=== PATIENT | male | born 1990 | race Caucasian/White ===

== ENCOUNTER 2016-08-17 09:50 | Inpatient (IN) | payer BC, OTHER ==
[~2016-08-17] VITALS: Ht 182.9 cm; Wt 61.2 kg
--- NOTE | 2016-08-17 09:58 | NUR ---
INTAKE ASSESSMENT Received patient AOx4. Patient presents in stable condition and ambulatory. Viral signs stable at BP 121/72, P 93, Temp 98.2, RR 16, O2 99%. Patient reports no known allergies and no seizure history. Patient did not bring any medications with him. Explained unit protocols and policies and patient verbalized understanding. Will admit patient when he arrives to third floor.
[2016-08-17] MEDS ORDERED: QUET200T PO (10:03)
[2016-08-17] MEDS ORDERED: ESCI20TA PO (10:03)
[2016-08-17 10:45] VITALS: BP 121/72
--- NOTE | 2016-08-17 11:00 | NUR ---
ADMISSION NOTE VS BP 121/72 HR 93 O2 99% RR 16 TEMP 98.2 PAIN 10/17 HEIGHT 6'0 WEIGHT 135 LBS ALLERGIES NKA Patient is a 25 year old male admitted to [facility] on 08/17/16 at 1045. Patient is under the care of Dr. Connell for Heroin, Meth, Coke, Crack dependence. Patient denies S/I and H/I at this time. Patient denies being hospitalized in the last 30 days. Patient denies chest pain or SOB. Patient reports using Seroquel 200 mg and Lexapro 20 mg daily. Upon assessment, patient has pick montalvo on upper back and right arm. COWS 12 upon assessment. NKA. AOX4. Patient is full code and regular diet. VS WNL. Patient denies seizure history. Patient denies having a PCP. Breathing is even and unlabored. Patient ambulates with steady gait. Patient states his bowel habits are not regular and he goes every few days if that. Patient reports treatment history at 3 other recovery centers last year with a sobriety period of 6 months. Patient reports living with his fiance. Hx Anxiety, depression, Hep C, and bipolar disorder. Patient smokes cigarettes and is requesting smoking cessation. Dr. Connell has seen patient and placed client under observation. All needs have been met, all safety measures in place. Bed in lowest position and locked with call dent within reach. Will continue to monitor. Substance Abuse: Heroin 1/2 gram daily for 4-5 years, last used 1/4 gram 08-16-16 Meth occasionally, last used unknown amount 3-4 days ago Coke occasionally, last used unknown amount 3-4 days ago Crack occasionally, last used unknown amount 3-4 days ago.
[2016-08-17] MEDS ORDERED: HYDROXYZINE PAMOATE 25 MG CAPSULE PO PRN (11:45)
[2016-08-17] MEDS ORDERED: LOPERAMIDE HCL 2 MG CAPSULE PO PRN ×2 (11:45)
[2016-08-17] MEDS ORDERED: CLONIDINE HCL 0.1 MG TABLET PO PRN (11:45)
[2016-08-17] MEDS ORDERED: IBUPROFEN 600 MG TABLET PO PRN (11:45)
[2016-08-17] MEDS ORDERED: MIRALAX 17 GM POWD.PACK PO PRN (11:45)
[2016-08-17] MEDS ORDERED: diphenhydrAMINE 50 MG CAPSULE PO PRN (11:45)
[2016-08-17] MEDS ORDERED: MAG HYDROX/AL HYDROX/SIMETH 30 ML LIQUID UDC PO PRN (11:45)
[2016-08-17] MEDS ORDERED: MAGNESIUM HYDROXIDE 30 ML LIQUID UDC PO PRN (11:45)
[2016-08-17] MEDS ORDERED: ACETAMINOPHEN 325 MG TABLET PO PRN (11:45)
[2016-08-17] MEDS ORDERED: BUPRENORPHINE HCL 2 MG TAB.SUBL SL PRN (11:45)
[2016-08-17] MEDS ORDERED: ONDANSETRON 4 MG/2 ML VIAL IM PRN (11:45)
[2016-08-17] MEDS ORDERED: DICYCLOMINE HCL 20 MG TABLET PO PRN (11:45)
[2016-08-17] MEDS ORDERED: ONDANSETRON ODT 4 MG TAB.RAPDIS SL PRN (11:45)
[2016-08-17 11:46] LABS: *AMPHETAMINE, URINE NEGATIVE (NEGATIVE); *BARBITURATE, URINE NEGATIVE (NEGATIVE); *CANNABINOID, URINE NEGATIVE (NEGATIVE); *COCCAINE, URINE NEGATIVE (NEGATIVE); *OPIATE, URINE POSITIVE (NEGATIVE); *PHENCYCLIDINE SCREEN,URINE NEGATIVE (NEGATIVE)
[2016-08-17 12:00] VITALS: BP 106/61
[2016-08-17] MEDS: BUPRENORPHINE HCL 2 MG TAB.SUBL SL SCH ×3 (12:31→21:28)
[2016-08-17 13:10] LABS: ETHANOL < 3 MG/DL (0-0)
[2016-08-17 13:13] LABS: BASOPHILS % (AUTO) 0.5 % (0.0-2.0); EOSINOPHILS # (AUTO) 0.2 K/uL (0.0-0.7); EOSINOPHILS % (AUTO) 3.6 % (0.0-7.0); HEMATOCRIT 41.5 % (40-50); HEMOGLOBIN 14.2 G/DL (14.0-18.0); LYMPHOCYTES # (AUTO) 1.9 K/UL (0.8-4.8); LYMPHOCYTES % (AUTO) 32.3 % (20.5-51.5); MEAN CORPUSCULAR HEMOGLOBIN 29.6 UUG (27.0-31.0); MEAN CORPUSCULAR HGB CONC 34 g/dL (32.0-37.0); MEAN CORPUSCULAR VOLUME 86.4 FL (82.0-92.0); MONOCYTES # (AUTO) 0.3 K/UL (0.1-1.30); MONOCYTES % (AUTO) 5.5 % (0.0-11.0); NEUTROPHILS # (AUTO) 3.6 K/UL (1.8-8.9); NEUTROPHILS % (AUTO) 58.1 % (38.5-71.5); PLATELET COUNT (AUTO) 246 K/UL (150-450)
[2016-08-17 13:14] LABS: ALANINE AMINOTRANSFERASE 253 U/L (16-63); ALKALINE PHOSPHATASE 101 U/L (50-136); ASPARTATE AMINOTRANSFERASE 92 U/L (15-37); BILIRUBIN,TOTAL 0.3 mg/dL (0.2-1.0); CARBON DIOXIDE 29 mmol/L (21-32); CHLORIDE 105 mmol/L (98-107); CREATININE 0.9 mg/dL (0.6-1.3); GLUCOSE 131 mg/dL (74-106); POTASSIUM 3.8 mmol/L (3.5-5.1); TOTAL PROTEIN, SERUM 7.7 g/dL (6.4-8.2); UREA NITROGEN, BLOOD 3 mg/dL (7-18)
[2016-08-17 16:00] VITALS: BP 123/80
--- NOTE | 2016-08-17 18:30 | NUR ---
END OF SHIFT NOTE Admitted patient this shift. Patient admitted for Heroin, Meth, Cocaine, & Crack dependence. Patient reports no seizure history. NKA. Patient started on 5 day Subutex taper and tolerating well. Patient given 2 doses this shift. Last COWS 9. Patient sleeping most of time after admission. He presents with scabs on upper back, pictures taken and placed in chart. All needs met. Safety measures in place. Patient sleeping in bed with rr even and unlabored and call dent within reach. Will endorse to night nurse.
--- NOTE | 2016-08-17 19:00 | NUR ---
Start of Shift Patient Received. Patient is in activities room participating in group meeting. Patient is a 25 year old male, admitted today 08/17/16 for Opiate Dependence, under the care of Dr. Connell. Patient was started on a Subutex taper and has received two doses. Patient verbalizes No known allergies, wishes to be full code, following a regular diet, and placed on fall precautions. Past medical history verbalizes as Bipolar, Anxiety, Depression, and Hep C+. Patient is also noted with scabs on upper back. Last noted COWS as 9. All needs attended to promptly. Will continue plan of care as ordered.
[2016-08-17 20:40] VITALS: BP 114/82
[2016-08-17] MEDS: QUETIAPINE FUMARATE 200 MG TABLET PO SCH (21:28)
[2016-08-17] MEDS: METHOCARBAMOL 750 MG TABLET PO PRN (21:28)
--- NOTE | 2016-08-17 21:30 | NUR ---
PRN Medication Administration Patient verbalizing increase muscle spasms and body aches. All non pharmacological interventions not effective. PRN Robaxin administered with routine medications. All needs attended to promptly. Will continue to monitor.
--- NOTE | 2016-08-17 22:40 | NUR ---
PRN Medication Reassessment Patient noted returning from smoking patio. Patient is able to verbalize "the subutex and the Robaxin really helped. I feel like I can relax to try and go to sleep." PRN Robaxin noted to be effective. Will continue to monitor.
[2016-08-18 00:16] VITALS: BP 101/57
[2016-08-18 04:05] VITALS: BP 105/67
--- NOTE | 2016-08-18 06:57 | NUR ---
End of Shift Patient is in bed sleeping. Breathing even and non labored. No signs of pain or discomfort noted. Patient is a 25 year old male, admitted 08/17/16 for Opiate Dependence, under the care of Dr. Connell. Patient was started on a Subutex taper and is tolerating well. Patient verbalizes No known allergies, full code, regular diet, and placed on fall precautions. Past medical history verbalizes as Bipolar, Anxiety, Depression, and Hep C+. Patient is also noted with scabs on upper back. Patient was given PRN Robaxin for increased muscle spasms with medication noted to be effective. All needs attended to promptly. Will continue plan of care as ordered.
--- NOTE | 2016-08-18 07:23 | NUR ---
START OF SHIFT NOTE Received report from night nurse, 25 year old male admitted for Heroin, Meth, Cocaine, & Crack dependence. NKA, full code, Regular diet. Patient cont on 5 day Subutex taper. Pt reported PMH of Bipolar, Anxiety, Depression, and Hep C+. Patient has scabs on upper back. Per endorsement pt received PRN Robaxin for muscle spasms effective pr night nurse. Currently pt sleeping in his room in stable condition, responsive to verbal and tactile stimuli. No s/s of distress noted. All safety measures in place, call light within reach. Will cont to monitor.
[2016-08-18 08:00] VITALS: BP 102/62
[2016-08-18] MEDS ORDERED: TUBERCULIN,PURIF.PROT.DERIV. 5 TU/0.1 ML TEST ID ONE (09:00)
[2016-08-18] MEDS: ESCITALOPRAM OXALATE 10 MG TABLET NG SCH (09:05)
[2016-08-18] MEDS: MULTIVITAMINS,THERAPEUTIC TABLET PO SCH (09:05)
[2016-08-18] MEDS: BUPRENORPHINE HCL 2 MG TAB.SUBL SL SCH ×3 (09:05→20:47)
[2016-08-18 12:00] VITALS: BP 99/55
[2016-08-18 16:00] VITALS: BP 101/62
--- NOTE | 2016-08-18 19:00 | NUR ---
Start of Shift Patient Received. Patient is in activities room participating in group meeting. Patient is a 25 year old male, admitted 08/17/16 for Opiate Dependence, under the care of Dr. Connell. Patient was started on a Subutex taper and has received two doses. Patient verbalizes No known allergies, wishes to be full code, following a regular diet, and placed on fall precautions. Past medical history verbalizes as Bipolar, Anxiety, Depression, and Hep C+. Patient is also noted with scabs on upper back. Per endorsement, patient was compliant with plan of care with last noted COWS as 7. All needs attended to promptly. Will continue plan of care as ordered.
--- NOTE | 2016-08-18 19:11 | NUR ---
END OF SHIFT NOTE Gave report to night nurse, 25 year old male admitted for Heroin, Meth, Cocaine, & Crack dependence. NKA, full code, Regular diet. Patient cont on 5 day Subutex taper. Pt reported PMH of Bipolar, Anxiety, Depression, and Hep C+. Patient has scabs on upper back. last COWS-7. Pt is compliant with treatment plan. Vital signs stable. Pt stayed in his room most of the time, Patient encouraged to attend group therapies/sessions to learn new coping skills to prevent relapse. patient denies any SI/HI. Safety measures in place. call light kept with in reach. patient endorsed to senior software analyst nurse, all pertinent information discussed. Pt endorsed to Night nurse in stable condition.
[2016-08-18 20:41] VITALS: BP 122/73
[2016-08-18] MEDS: QUETIAPINE FUMARATE 200 MG TABLET PO SCH (20:47)
[2016-08-18] MEDS: GABAPENTIN 300 MG CAPSULE PO SCH (20:47)
[2016-08-19 00:15] VITALS: BP 93/55
[2016-08-19 04:34] VITALS: BP 98/65
--- NOTE | 2016-08-19 07:05 | NUR ---
End of Shift Patient is in bed sleeping. Breathing even and non labored. No signs of pain or discomfort noted. Patient is a 25 year old male, admitted 08/17/16 for Opiate Dependence, under the care of Dr. Connell. Patient was started on a Subutex taper and is tolerating well. Patient verbalizes No known allergies, full code, regular diet, and placed on fall precautions. Past medical history verbalizes as Bipolar, Anxiety, Depression, and Hep C+. Patient is also noted with scabs on upper back. NO PRN Medications administered. All needs attended to promptly. Will continue plan of care as ordered.
--- NOTE | 2016-08-19 07:33 | NUR ---
START OF SHIFT NOTE Received report from night nurse, 25 year old male admitted for Heroin, Meth, Cocaine, & Crack dependence. NKA, full code, Regular diet. Patient cont on 5 day Subutex taper. Pt reported PMH of Bipolar, Anxiety, Depression, and Hep C+. Patient has scabs on upper back. Per endorsement pt received did not receive any PRN medications, Last COWS-1, Slept for 9 hours. Currently pt sleeping in his room in stable condition, responsive to verbal and tactile stimuli. No s/s of distress noted. All safety measures in place, call light within reach. Will cont to monitor.
[2016-08-19 08:00] VITALS: BP 108/68
[2016-08-19] MEDS: MULTIVITAMINS,THERAPEUTIC TABLET PO SCH (08:57)
[2016-08-19] MEDS: ESCITALOPRAM OXALATE 10 MG TABLET NG SCH (08:57)
[2016-08-19] MEDS: GABAPENTIN 300 MG CAPSULE PO SCH ×3 (08:57→21:08)
[2016-08-19] MEDS ORDERED: BUPRENORPHINE HCL 2 MG TAB.SUBL SL SCH (09:00)
[2016-08-19 12:00] VITALS: BP 131/79
[2016-08-19] MEDS: BACLOFEN 10 MG TABLET PO SCH ×2 (14:20→21:08)
[2016-08-19] MEDS: BUPRENORPHINE HCL 2 MG TAB.SUBL SL SCH ×2 (14:21→21:08)
[2016-08-19 16:00] VITALS: BP 111/69
--- NOTE | 2016-08-19 17:15 | NUR ---
PRN VISTARIL Pt c/o anxiety, restless, PRN Vistaril administered as ordered. Will cont to monitor and reassess.
--- NOTE | 2016-08-19 18:15 | NUR ---
REASSESSMENT Pt reported medication effective"I am feeling less anxious". Will cont to monitor.
--- NOTE | 2016-08-19 19:03 | NUR ---
END OF SHIFT NOTE Gave report to night nurse, 25 year old male admitted for Heroin, Meth, Cocaine, & Crack dependence. NKA, full code, Regular diet. Patient cont on 5 day Subutex taper tolerating well. Pt reported PMH of Bipolar, Anxiety, Depression, and Hep C+. Patient has scabs on upper back. last COWS-7. Pt received PRN Vistaril for anxiety noted to be effective. Pt is compliant with treatment plan. Vital signs stable. Pt attended groups and activities. Patient encouraged to attend group therapies/sessions to learn new coping skills to prevent relapse. Encouraged Po fluids as tolerated. Patient denies any SI/HI. Safety measures in place. call light kept with in reach. patient endorsed to caustic cresylate shift superintendent nurse, all pertinent information discussed. Pt endorsed to Night nurse in stable condition.
--- NOTE | 2016-08-19 19:03 | NUR ---
START OF SHIFT NOTE: Patient endorsed by day shift nurse . Report received. Patient is a 25 year male admitted to [facility] on 08/17/16 for Opioid Dependence. Patient on 5 Day Subutex Taper since 08/17/16, which tolerated well. Patient remains compliant with therapy, medications, and diet regimen. Patient reports NKA. Patient has Full Code and Regular Diet. Patient is on Fall and Seizures Precautions. Patient reports NKA. Patient is has Full Code and Regular Diet. Patient is on Fall Precautions. Past medical History: Depressive disorder, Anxiety disorder, Bipolar Disorder, Hepatitis C. Upon assessment, patient is in his room A&Ox4, cooperative. Speech is soft and clear. COWS 7: Patient c/o anxiety, agitation, nervousness, body aches, tremors, stomach cramps, and restlessness. VS: T:98'1; HR: 99; BP: 133/77; O2SAT: 98%; RR:19. Pain level of "body aches is 7/10". Respirations even and unlabored. Lungs Sounds are clear thoroughly. Patient denies SOB and chest pain. Heart rate is regular, no murmur noted. Bowel Sounds is active in all 4 quadrants. Last Bowel Movement was "08/19/16". Skin is intact, warm and dry. Patient has healed scabs on his upper back. Encouraged fluids intake as tolerated. Encouraged to attend groups activities. Education provided for hand washing and fall prevention in the hospital. Patient returned his knowledge back by verbalized understanding. All needs met. Safety measures in the place. Call light within reach, bed in the lowest position, and locked, padded side rails up bilaterally. Will continue to monitor closely.
[2016-08-19 20:00] VITALS: BP 113/77
[2016-08-19] MEDS: QUETIAPINE FUMARATE 200 MG TABLET PO SCH (21:09)
[2016-08-20] VITALS: BP 105/62
[2016-08-20 04:00] VITALS: BP 106/65
[2016-08-20 04:07] LABS: HEPATITIS B SURFACE AG Negative (Negative)
--- NOTE | 2016-08-20 07:05 | NUR ---
END OF SHIFT NOTE: Patient endorsed to day shift nurse in stable condition. Report given. Patient is a 25 year old male admitted to [facility] 08/17/16 for Opiate Dependence, placed on 5 Day Subutex Taper . Patient tolerated well. NKA, Regular Diet, Full Code, Fall Precautions. Patent denies History of Seizure. PMH: Anxiety, Bipolar Disorder, Depression, Hepatitis C, Substance Abuse, Tobacco Dependence. Patient denies Past Surgery History. COWS at 04:00: Patient presented with withdrawal S/S of anxiety, agitation, nervousness, tremors that can be felt, body aches, restlessness, and sweats. Patient denies SI/HI. VS at 04:00: T: 97'6; BP: 106/65; HR: 81; RR: 16; O2 SAT: 97%. Patient denies pain "0/10". Patient attended groups activities. Encourage to fluids intake, as tolerated. Respirations even and unlabored. Patient denies chest pain and SOB. Skin is intake, warm and dry to touch. Patient remains compliant with treatment plan, medications, and diet regimen. Patient slept 7 hours, intake 2,400 ml, voided x2. All needs met. Safety measures in the place by hospital policy: bed in the lowest position, and locked, bed rails up x2.
[2016-08-20 08:00] VITALS: BP 101/83
[2016-08-20] MEDS: BACLOFEN 10 MG TABLET PO SCH ×3 (08:26→21:15)
[2016-08-20] MEDS: MULTIVITAMINS,THERAPEUTIC TABLET PO SCH (08:26)
[2016-08-20] MEDS: GABAPENTIN 300 MG CAPSULE PO SCH ×3 (08:26→21:15)
[2016-08-20] MEDS: BUPRENORPHINE HCL 2 MG TAB.SUBL SL SCH ×3 (08:26→21:15)
[2016-08-20] MEDS: ESCITALOPRAM OXALATE 10 MG TABLET NG SCH (08:26)
--- NOTE | 2016-08-20 08:30 | NUR ---
START OF SHIFT Pt 25 y/o male admitted for substance dependence. Pt received in room awake on bed watching television and eating cereal. Pt alert and oriented to name, place, and time. Perrla. Skin warm and slightly moist to touch. Respirations even and unlabored. Pt appeared on guarded on approach with flat afflect to blunt affect. It was reported that pt slept for 5 hours last night. Bed on lowest position with side rails x2 up for safety. Call light within reach. No distress noted at this time.
[2016-08-20 08:32] LABS: BILIRUBIN,DIRECT 0.1 mg/dL (0.0-0.2); BILIRUBIN,TOTAL 0.2 mg/dL (0.2-1.0); CREATININE 0.8 mg/dL (0.6-1.3); MAGNESIUM 1.8 mg/dL (1.8-2.4); POTASSIUM 4.5 mmol/L (3.5-5.1); TOTAL PROTEIN, SERUM 7.4 g/dL (6.4-8.2)
[2016-08-20 12:00] VITALS: BP 97/62
--- NOTE | 2016-08-20 13:00 | NUR ---
NSG ENTRY pt observed in room on bed with eyes closed resting, but easily arousable to name. Bed on lowest position with side rails x2 up for safety. Call light within reach. No distress noted at this time.
[2016-08-20 16:00] VITALS: BP 116/58
--- NOTE | 2016-08-20 18:55 | NUR ---
END OF SHIFT Pt 25 y/o male admitted for substance dependence. Pt alert and oriented to name, place, and time. Perrla. Skin warm and slightly moist to touch. Respriations even and unlabored. Bilateral hand tremors noted slightly. Pt observed isolative to room throughtout the day. Pt did not attend group activity, even with encouragement. Pt medication compliant and tolerated well. No ASE noted. Bed on lowest position with side rails x2 up for safety. Call light within reach. No distress noted at this time.
--- NOTE | 2016-08-20 18:55 | NUR ---
START OF SHIFT NOTE: Report received for patient endorsed by day shift nurse. Patient is a 25 year male admitted to [facility] on 08/17/16 for Opioid Dependence. Patient completed 5 Day Subutex Taper, which tolerated well. Patient remains compliant with therapy, medications, and diet regimen. Patient has NKA. Patient is on Full Code and Regular Diet. Patient placed on Fall and Seizures Precautions. PMH: Depression, Anxiety, Bipolar Disorder, Hepatitis C. Last COWS 3. VS WNL and stable during day shift. Respirations even and unlabored. Lungs Sounds are clear thoroughly. Patient denies SOB and chest pain. Heart rate is regular, murmur noted. Bowel Sounds is active in all 4 quadrants. Last Bowel Movement was "08/20/16". Skin is intact, warm and dry to touch. Patient has healed scabs on his upper back. Encouraged fluids intake as tolerated. Encouraged to attend groups activities. All needs met. Safety measures in the place. Call light within reach, bed in the lowest position, and locked, padded side rails up bilaterally. Will continue to monitor closely.
[2016-08-20 20:00] VITALS: BP 111/74
[2016-08-20] MEDS: QUETIAPINE FUMARATE 200 MG TABLET PO SCH (21:15)
[2016-08-21] VITALS: BP 106/91
[2016-08-21 04:00] VITALS: BP 102/63
--- NOTE | 2016-08-21 07:21 | NUR ---
END OF SHIFT NOTE: Patient endorsed to day shift nurse in stable condition. Report given. Patient is a 25 year old male admitted to [facility] 08/17/16 for Opiate Dependence, placed on 5 Day Subutex Taper . Patient tolerated well. NKA, Regular Diet, Full Code, Fall Precautions. Patent denies History of Seizure. PMH: Anxiety, Bipolar Disorder, Depression, Hepatitis C, Substance Abuse, Tobacco Dependence. Patient denies Past Surgery History. COWS 2 at 04:00: Patient presented with withdrawal S/S of anxiety, agitation, nervousness, tremors that can be felt, body aches, restlessness, and sweats. Patient denies SI/HI. VS at 04:00: T: 97'6; BP: 102/63; HR: 84; RR: 16; O2 SAT: 95%. Pain level "0/10". Patient attended groups activities. Encourage to fluids intake, as tolerated. Respirations even and unlabored. Skin is intake, warm and dry to touch. Patient remains compliant with treatment plan, medications, and diet regimen. Patient slept 7 hours, intake 1,182 ml, voided x2., stool x1. All needs met. Safety measures in the place by hospital policy: bed in the lowest position, and locked, bed rails up x2.
--- NOTE | 2016-08-21 07:30 | NUR ---
START OF SHIFT Pt 25 y/o male admitted for substance dependence. Pt received in room on bed with eyes closed resting, but easily arousable to name. Pt alert and oriented to name, place, and time. Perrla. Skin warm and slightly moist to touch. Respirations even and unlabored. It was reported that pt slept for 7 hours last night. Bed on lowest position with side rails x2 up for safety. Call light within reach. No distress noted at this time.
[2016-08-21 08:05] VITALS: BP 97/61
[2016-08-21] MEDS: BACLOFEN 10 MG TABLET PO SCH ×3 (08:14→21:04)
[2016-08-21] MEDS: ESCITALOPRAM OXALATE 10 MG TABLET NG SCH (08:14)
[2016-08-21] MEDS: MULTIVITAMINS,THERAPEUTIC TABLET PO SCH (08:14)
[2016-08-21] MEDS: GABAPENTIN 300 MG CAPSULE PO SCH ×3 (08:14→21:04)
[2016-08-21] MEDS ORDERED: BUPRENORPHINE HCL 2 MG TAB.SUBL SL SCH (09:00)
--- NOTE | 2016-08-21 11:00 | NUR ---
NSG ENTRY Pt observed in room on bed with eyes closed resting, but easily arousable to name. Bed on lowest position with side rails x 2 up for safety. Call light within reach. No distress noted at this time.
[2016-08-21 13:26] VITALS: BP 90/56
[2016-08-21] MEDS ORDERED: HYDR-3895 PO (13:37)
[2016-08-21] MEDS ORDERED: DICY20TA28 PO (13:37)
[2016-08-21] MEDS ORDERED: IBUP-1955 PO (13:37)
[2016-08-21] MEDS ORDERED: GABA-534 PO (13:37)
[2016-08-21] MEDS ORDERED: BACL10TA PO (13:37)
[2016-08-21 17:31] VITALS: BP 124/70
[2016-08-21 17:41] LABS: *AMPHETAMINE, URINE NEGATIVE (NEGATIVE); *BARBITURATE, URINE NEGATIVE (NEGATIVE); *CANNABINOID, URINE NEGATIVE (NEGATIVE); *COCCAINE, URINE NEGATIVE (NEGATIVE); *OPIATE, URINE NEGATIVE (NEGATIVE); *PHENCYCLIDINE SCREEN,URINE NEGATIVE (NEGATIVE)
--- NOTE | 2016-08-21 18:36 | NUR ---
END OF SHIFT Pt 25 y/o male admitted for substance dependence. Pt alert and oriented to name, place, and time. Perrla. Skin warm and dry to touch. Respriations even and unlabored. Bilateral hand tremors noted slightly. Pt observed isolative to room throughtout the day. Pt did not attend group activity, even with encouragement. Pt is scheduled to be discharged tomorrow. Pt medication compliant and tolerated well. No ASE noted. Bed on lowest position with side rails x2 up for safety. Call light within reach. No distress noted at this time.
[2016-08-21 20:00] VITALS: BP 127/87
--- NOTE | 2016-08-21 20:00 | NUR ---
Start of Shift Note: Report received from day shift nurse. Pt is a 25 y/o male admitted on 08/17/2016 for medically-supervised withdrawal from opiates, methamphetamine, and cocaine. Pt reports using 0.5-1gm IV heroin with fentanyl daily for 6 months; pt also reports intermittent use of methamphetamine salts and cocaine for 6 months. Pt has completed a 5-day Subutex taper and is to discharge tomorrow. Pt received with last COWS=3, and no PRN medications were given during day shift. Full code, regular diet, allergy NKA. Pt reports PMHx: bipolar DO, anxiety DO, Hep-C+. Pt received in room, and reports anxiety. Bed is in low position and locked, side rails up x2, call light within reach. Will continue to monitor.
[2016-08-21] MEDS: QUETIAPINE FUMARATE 200 MG TABLET PO SCH (21:04)
--- NOTE | 2016-08-21 21:06 | NUR ---
PRN Clonidine: Patient complains of increased anxiety. Non-pharmacological measures not effective. Administered PRN clonidine as ordered. Will continue to monitor.
--- NOTE | 2016-08-21 22:10 | NUR ---
PRN Reassessment: Patient is in bed with eyes closed. Respirations are even and unlabored. No s/s of acute distress noted. PRN Clonidine effective AEB patient's ability to rest. Will continue to monitor.
[2016-08-22] VITALS: BP 85/56
--- NOTE | 2016-08-22 | NUR ---
COWS Deferred: COWS deferred for sleep. V/S stable. All safety precautions are in place. Will continue to monitor. Addendum: 08/22/16 at 0135 by FRANTZ PERRY RN Amended: Links added.
[2016-08-22 04:00] VITALS: BP 104/59
--- NOTE | 2016-08-22 07:17 | NUR ---
End of Shift Note: Pt is a 25 y/o male admitted to [facility] on 08/17/2016 for medically-supervised withdrawal from opiates, methamphetamine, and cocaine. Pt reports PMHx: bipolar DO, anxiety DO, Hep-C+. Pt is a full code. Pt is on a regular diet. Pt reports NKA. Pt reports using 0.5-1gm IV heroin with fentanyl daily for 6 months; pt also reports intermittent use of methamphetamine salts and cocaine for 6 months. Pt has completed a 5-day Subutex taper and is to discharge today. Scheduled medication regime effectively managed s/s of withdrawal this shift, in addition to PRN Clonidine for anxiety. Last COWS=3 at 20:00. V/S stable throughout shift with tachycardia (115 and 97). Total fluid intake this shift: 1000 ml; output: urine x 1 and BM x 0. Pt is currently in bed and slept 8 hours this shift. All needs have been attended and met. Pt endorsed to day shift nurse.
--- NOTE | 2016-08-22 07:30 | NUR ---
start of shift note: received pt from overnight cashier nurse, pt is in stable condition at this time no s/s of pain or discomfort. pt is admitted to [facility] for opiate/meth withdrawal/dependence. pts last ciwa 3. pt is set to discharge today. will assist pt in discharging and will continue to monitor pt for any changes.
[2016-08-22] MEDS: GABAPENTIN 300 MG CAPSULE PO SCH (09:40)
[2016-08-22] MEDS: MULTIVITAMINS,THERAPEUTIC TABLET PO SCH (09:40)
[2016-08-22] MEDS: ESCITALOPRAM OXALATE 10 MG TABLET NG SCH (09:40)
[2016-08-22] MEDS: BACLOFEN 10 MG TABLET PO SCH (09:40)
[2016-08-22] MEDS: METHOCARBAMOL 750 MG TABLET PO PRN (09:43)
--- NOTE | 2016-08-22 09:59 | NUR ---
discharge note: pt left the unit in stable condition no s/s of pain or discomfort or any withdrawal symptoms. pt teaching was administered and pt verbalized understanding. pt's V/S WNL. pt left with all personal belongings and was transferred to [facility] via private car
== END 2016-08-22 09:59 | disposition other institution (70) | DRG 895 ==
LOC: SRC 09:50
PROVIDERS: ADMIT Internal Medicine; ATTEND Internal Medicine
PROC: HZ2ZZZZ Detoxification Services for Substance Abuse Treatment (ICD-10-PCS; principal; 2016-08-17)
PROC: HZ41ZZZ Group Counseling for Substance Abuse Treatment, Behavioral (ICD-10-PCS; 2016-08-19)
DX: F11.23 Opioid dependence with withdrawal (principal); F33.3 Major depressive disorder, recurrent, severe with psychotic symptoms; B18.2 Chronic viral hepatitis C; Z81.8 Family history of other mental and behavioral disorders; G47.00 Insomnia, unspecified; F41.9 Anxiety disorder, unspecified; F17.210 Nicotine dependence, cigarettes, uncomplicated; F15.10 Other stimulant abuse, uncomplicated; F14.10 Cocaine abuse, uncomplicated
CPT/HCPCS: 36415; 70030-TC; 80307; 80361; 83735; 85025; 86580; 86592; 86705; 86803; 87340; 87806; 93005; G0480